=== PATIENT | female | born 1960 | race Caucasian/White ===

== ENCOUNTER 2017-09-08 13:29 | Emergency (ER) | payer OTHER ==
[~2017-09-08] VITALS: Ht 160 cm; Wt 59.7 kg
[~2017-09-08 13:29] MED LIST: AUGMENTIN875 MG PO; CALTRATE 600+D1 EAC1 PO; ENDOCET 5-3251 EACH PO; MOBIC7.5 MG PO; PRENATAL TABLE1 EAC3 PO; ZOLOFT100 MG PO
[2017-09-08] MEDS ORDERED: TYLENOL WITH C1 EACH PO (16:18)
[2017-09-08] MEDS ORDERED: PEN-VEE K,VEET500 MG PO (16:18)
[2017-09-08 17:22] VITALS: BP 148/71
== END 2017-09-08 17:24 | disposition home or self-care (01) ==
LOC: EME 13:29
PROC: 3E0T3BZ Introduction of Anesthetic Agent into Peripheral Nerves and Plexi, Percutaneous Approach (ICD-10-PCS; principal; 2017-09-08)
DX: K04.7 Periapical abscess without sinus (principal); F32.9 Major depressive disorder, single episode, unspecified; F17.200 Nicotine dependence, unspecified, uncomplicated; Z90.49 Acquired absence of other specified parts of digestive tract
CPT/HCPCS: 99281; 99283